=== PATIENT | male | born 1975 | race Hispanic/Latino ===

== ENCOUNTER 2020-04-11 08:19 | Emergency (ER) | payer OTHER, SELFPAY ==
--- NOTE | 2020-04-11 08:49 | ER ---
Nurse's Notes [facility] Name: Jourdan Lainez Age: 45 yrs Sex: Male : 1975 Arrival Date: 04/11/2020 Time: 08:22 Bed 15 Private MD: Diagnosis: Acute tonsillitis;Acute upper respiratory infection, unspecified Presentation: 04/11 08:39 Chief complaint: Sore throat, cough, body aches, and nausea x 2 days. Sister recently hb tested COVID +. Coronavirus screen: cough unrelated to allergies, muscle pain, nausea, sore throat, Client presents with at least one sign or symptom that may indicate coronavirus-19. Standard/surgical mask placed on the client. Provider contacted for isolation considerations. Ebola Screen: No symptoms or risks identified at this time. Initial Sepsis Screen: Does the patient meet any 2 criteria? No. Patient's initial sepsis screen is negative. Does the patient have a suspected source of infection? No. Patient's initial sepsis screen is negative. Risk Assessment: Do you want to hurt yourself or someone else? Patient reports no desire to harm self or others. Onset of symptoms was April 10, 2020. 08:39 Method Of Arrival: Ambulatory 08:39 Acuity: ALLISON 4 hb Historical: - Allergies: 08:41 Codeine; hb - Home Meds: 08:41 None [Active]; hb - PMHx: 08:41 None; hb - PSHx: 08:41 None; hb - Immunization history:: Adult Immunizations up to date. - Social history:: Smoking status: Patient denies any tobacco usage or history of. - Family history:: not pertinent. Screenin:38 Abuse screen: Denies threats or abuse. Denies injuries from another. Nutritional ph screening: No deficits noted. Tuberculosis screening: No symptoms or risk factors identified. Fall Risk None identified. Assessment: 08:55 General: Appears in no apparent distress. comfortable, well groomed, Behavior is ph cooperative, anxious, crying, fussy. Pain: Complains of pain in throat and body aches. Neuro: Level of Consciousness is awake, alert, obeys commands, Oriented to person, place, time, situation. Cardiovascular: Capillary refill < 3 seconds in bilateral fingers Patient's skin is warm and dry. Respiratory: Reports cough that is Airway is patent Respiratory effort is even, unlabored. GI: No signs and/or symptoms were reported involving the gastrointestinal system. EENT: Throat is reddened Reports pain when swallowing. Derm: Skin is intact, is healthy with good turgor, Skin is pink, warm \\T\\ dry. Musculoskeletal: Circulation, motion, and sensation intact. Range of motion: intact in all extremities. 09:05 Reassessment: Patient appears in no apparent distress at this time. Pt refusing COVID ph test, states, " Nah I ain't doin that shit, ain't nobody sticking anything that far up my nose. That shit hurts and I ain't trying to go back to intermediate.." ERP notified of refusal for testing, flu and strep swabs collected. 09:20 Reassessment: Patient appears in no apparent distress at this time. Patient and/or ph family updated on plan of care and expected duration. Pain level reassessed. Patient is alert, oriented x 3, equal unlabored respirations, skin warm/dry/pink. IM meds administered, awaiting 15 min shot time and results of flu and strep before d/c. Vital Signs: 08:39 BP 134 / 98; Pulse 87; Resp 16; Temp 98.3; Pulse Ox 100% on R/A; Pain 8/10; hb 09:24 BP 130 / 92; Pulse 72; Resp 16; Pulse Ox 99% on R/A; ph 10:00 BP 136 / 89; Pulse 69; Resp 18; Temp 98.0; Pulse Ox 99% on R/A; ph ED Course: 08:22 Patient arrived in ED. mr 08:34 Rex Otoole MD is Attending Physician. gisel 08:37 Cammie Hoffman, RN is Primary Nurse. ph 08:38 Arm band placed on Patient placed in an exam room. ph 08:38 Patient has correct armband on for positive identification. Placed in gown. Bed in low ph position. Call light in reach. Side rails up X 1. Pulse ox on. NIBP on. Door closed. Noise minimized. Warm blanket given. 08:40 Triage completed. hb 09:25 No provider procedures requiring assistance completed. Patient did not have IV access ph during this emergency room visit. Administered Medications: 09:15 Drug: Decadron 10 mg Route: IM; Site: right deltoid; ph 10:00 Follow up: Response: No adverse reaction ph 09:15 Drug: Zithromax 500 mg Route: PO; ph 09:58 Follow up: Response: No adverse reaction ph 09:16 Drug: Rocephin (cefTRIAXone) 1 grams Route: IM; Site: right vastus lateralis; ph 09:59 Follow up: Response: No adverse reaction ph Outcome: 08:49 Discharge ordered by MD. batres 10:00 Discharged to home ambulatory, with family. ph 10:00 Condition: good 10:00 Discharge instructions given to patient, family, Instructed on discharge instructions, follow up and referral plans. medication usage, Demonstrated understanding of instructions, follow-up care, medications, Prescriptions given X 3. 10:01 Patient left the ED. ph Signatures: Rex Otoole MD MD cha Rivera, Cammie Gibbs RN RN ph Omayra Olivares RN RN
--- NOTE | 2020-04-11 08:50 | EDPHYS ---
Physician Documentation [facility] Name: Jourdan Lainez Age: 45 yrs Sex: Male : 1975 Arrival Date: 04/11/2020 Time: 08:22 Bed 15 Private MD: HARINI Physician Rex Otoole HPI: 04/11 08:45 This 45 yrs old Male presents to ER via Ambulatory with complaints of Sore gisel Throat, Cough, Congestion. 08:45 The patient presents with sore throat. The patient describes throat pain as raw, gisel scratchy. Onset: The symptoms/episode began/occurred 2 day(s) ago. Severity of symptoms: At their worst the symptoms were mild, this morning. Modifying factors: The symptoms are alleviated by nothing, fluids, the symptoms are aggravated by nothing. Associated signs and symptoms: Pertinent positives: cough, fever, flu-like symptoms, nausea, rhinorrhea, Sore throat. The patient has not experienced similar symptoms in the past. Historical: - Allergies: 08:41 Codeine; hb - Home Meds: 08:41 None [Active]; hb - PMHx: 08:41 None; hb - PSHx: 08:41 None; hb - Immunization history:: Adult Immunizations up to date. - Social history:: Smoking status: Patient denies any tobacco usage or history of. - Family history:: not pertinent. ROS: 08:45 Constitutional: Negative for fever, chills, and weight loss, Eyes: Negative for injury, gisel pain, redness, and discharge, Neck: Negative for injury, pain, and swelling, Cardiovascular: Negative for chest pain, palpitations, and edema, Respiratory: Negative for shortness of breath, cough, wheezing, and pleuritic chest pain, Abdomen/GI: Negative for abdominal pain, nausea, vomiting, diarrhea, and constipation, Back: Negative for injury and pain, : Negative for injury, bleeding, discharge, and swelling, MS/Extremity: Negative for injury and deformity, Skin: Negative for injury, rash, and discoloration, Neuro: Negative for headache, weakness, numbness, tingling, and seizure, Psych: Negative for depression, anxiety, suicide ideation, homicidal ideation, and hallucinations, Allergy/Immunology: Negative for hives, rash, and allergies, Endocrine: Negative for neck swelling, polydipsia, polyuria, polyphagia, and marked weight changes, Hematologic/Lymphatic: Negative for swollen nodes, abnormal bleeding, and unusual bruising. 08:45 ENT: Positive for sore throat. Exam: 08:45 Constitutional: This is a well developed, well nourished patient who is awake, alert, gisel and in no acute distress. Head/Face: Normocephalic, atraumatic. Eyes: Pupils equal round and reactive to light, extra-ocular motions intact. Lids and lashes normal. Conjunctiva and sclera are non-icteric and not injected. Cornea within normal limits. Periorbital areas with no swelling, redness, or edema. Neck: Trachea midline, no thyromegaly or masses palpated, and no cervical lymphadenopathy. Supple, full range of motion without nuchal rigidity, or vertebral point tenderness. No Meningismus. Chest/axilla: Normal chest wall appearance and motion. Nontender with no deformity. No lesions are appreciated. Cardiovascular: Regular rate and rhythm with a normal S1 and S2. No gallops, murmurs, or rubs. Normal PMI, no JVD. No pulse deficits. Respiratory: Lungs have equal breath sounds bilaterally, clear to auscultation and percussion. No rales, rhonchi or wheezes noted. No increased work of breathing, no retractions or nasal flaring. Abdomen/GI: Soft, non-tender, with normal bowel sounds. No distension or tympany. No guarding or rebound. No evidence of tenderness throughout. Back: No spinal tenderness. No costovertebral tenderness. Full range of motion. Male : Normal genitalia with no discharge or lesions. Skin: Warm, dry with normal turgor. Normal color with no rashes, no lesions, and no evidence of cellulitis. MS/ Extremity: Pulses equal, no cyanosis. Neurovascular intact. Full, normal range of motion. Neuro: Awake and alert, GCS 15, oriented to person, place, time, and situation. Cranial nerves II-XII grossly intact. Motor strength 5/5 in all extremities. Sensory grossly intact. Cerebellar exam normal. Normal gait. Psych: Awake, alert, with orientation to person, place and time. Behavior, mood, and affect are within normal limits. 08:45 ENT: Posterior pharynx: Tonsils: bilaterally enlarged, with erythema, Uvula: normal, edematous, erythema, swelling, that is mild, erythema, that is mild. Vital Signs: 08:39 BP 134 / 98; Pulse 87; Resp 16; Temp 98.3; Pulse Ox 100% on R/A; Pain 8/10; hb 09:24 BP 130 / 92; Pulse 72; Resp 16; Pulse Ox 99% on R/A; ph 10:00 BP 136 / 89; Pulse 69; Resp 18; Temp 98.0; Pulse Ox 99% on R/A; ph MDM: 08:34 Patient medically screened. [facility] 08:45 Differential diagnosis: bronchitis, group A strep tonsillitis, influenza, peritonsillar gisel abscess pharyngitis, upper respiratory infection, uvulitis. Data reviewed: vital signs, nurses notes, lab test result(s), Flu:. Data interpreted: hall monitor: rate is 87 beats/min, rhythm is regular, Pulse oximetry: on room air is 100 %. Counseling: I had a detailed discussion with the patient and/or guardian regarding: the historical points, exam findings, and any diagnostic results supporting the discharge/admit diagnosis, lab results. 04/11 08:45 Order name: Strep [facility] 04/11 08:45 Order name: Flu [facility] 04/11 08:45 Order name: COVID-19 [facility] 04/11 09:42 Order name: Throat Culture EDMS Administered Medications: 09:15 Drug: Decadron 10 mg Route: IM; Site: right deltoid; ph 10:00 Follow up: Response: No adverse reaction ph 09:15 Drug: Zithromax 500 mg Route: PO; ph 09:58 Follow up: Response: No adverse reaction ph 09:16 Drug: Rocephin (cefTRIAXone) 1 grams Route: IM; Site: right vastus lateralis; ph 09:59 Follow up: Response: No adverse reaction ph Disposition: 04/11/20 08:49 Discharged to Home. Impression: Acute tonsillitis, Acute upper respiratory infection, unspecified. - Condition is Stable. - Discharge Instructions: Tonsillitis, Upper Respiratory Infection, Adult, Tonsillitis, [id number], Cool Mist Vaporizer, Upper Respiratory Infection, Adult, [id number], Cough, Adult. - Prescriptions for dexamethasone 2 mg Oral tablet - take 1 tablet by ORAL route 3 times per day; 15 tablet. Pepcid 20 mg Oral Tablet - take 1 tablet by ORAL route every 12 hours for 10 days; 20 tablet. Zithromax 500 mg Oral Tablet - take 1 tablet by ORAL route once daily for 5 days; 5 tablet. - Medication Reconciliation Form, Thank You Letter, Antibiotic Education, Prescription Opioid Use form. - Follow up: Private Physician; When: 2 - 3 days; Reason: Recheck today's complaints, Continuance of care, Re-evaluation by your physician. - Problem is new. - Symptoms have improved. Signatures: Dispatcher [employer] EDMS Rex Otoole MD MD cha Hall, Patricia RN RN Omayra Olivares RN RN Corrections: (The following items were deleted from the chart) 10:01 08:49 04/11/2020 08:49 Discharged to Home. Impression: Acute tonsillitis; Acute upper ph respiratory infection, unspecified. Condition is Stable. Forms are Medication Reconciliation Form, Thank You Letter, Antibiotic Education, Prescription Opioid Use. Follow up: Private Physician; When: 2 - 3 days; Reason: Recheck today's complaints, Continuance of care, Re-evaluation by your physician. Problem is new. Symptoms have improved. gisel
[2020-04-11] MEDS ORDERED: AZITHROMYCIN 250 MG TAB ONE (09:08)
[2020-04-11] MEDS ORDERED: LIDOCAINE 1% MPF 2 ML AMPULE ONE (09:08)
[2020-04-11] MEDS ORDERED: dexAMETHasone 4 MG/ML VIAL ONE (09:09)
[2020-04-11] MEDS ORDERED: CEFTRIAXONE 1000 MG/VIAL ONE (09:09)
[2020-04-11 10:07] VITALS: O2SAT 99
[2020-04-11 10:10] VITALS: BP 136/89; TEMP 98
== END 2020-04-11 10:01 | disposition home or self-care (01) ==
LOC: ER 08:19
DX: J03.90 Acute tonsillitis, unspecified (principal); J06.9 Acute upper respiratory infection, unspecified; Z53.29 Procedure and treatment not carried out because of patient's decision for other reasons; Z88.5 Allergy status to narcotic agent
CPT/HCPCS: 87070; 87081; 87804; 96372; 99283; J1100; J2001